=== PATIENT | female | born 1970 | race Caucasian/White ===

== ENCOUNTER 2022-11-30 02:11 | Emergency (ER) | payer BC, SELFPAY ==
[2022-11-30 02:13] VITALS: BP 129/66; PULSE 66; RESP 20; TEMP 36.8; O2SAT 97; BMI 34.1
[2022-11-30 02:20] VITALS: BP 129/66; PULSE 62; O2SAT 98
--- NOTE | 2022-11-30 02:24 | XR_ITS ---
PROCEDURE INFORMATION: Exam: XR Left Ankle Exam date and time: 11/30/2022 2:37 AM Age: 52 years old Clinical indication: Pain and injury or trauma; Other: Dropped large roll of paper on leg; Swelling (edema); Left; Ankle and lower leg; Bilateral; Additional info: Heavy object vs leg, pain/swelling TECHNIQUE: Imaging protocol: Radiologic exam of the left ankle. Views: 3 or more views. COMPARISON: CR XR TIBIA FIBULA LT 2V 11/30/2022 2:36 AM FINDINGS: Bones/joints: Normal. Soft tissues: Normal. IMPRESSION: No acute findings.
--- NOTE | 2022-11-30 02:24 | XR_ITS ---
PROCEDURE INFORMATION: Exam: XR Left Tibia and Fibula Exam date and time: 11/30/2022 2:36 AM Age: 52 years old Clinical indication: Injury or trauma; Other: Dropped a large roll of paper on leg; Swelling, leg or foot and other: Bruising to posterior leg; Additional info: Heavy object vs leg, pain/swelling TECHNIQUE: Imaging protocol: Radiologic exam of the left tibia and fibula. Views: 2 views. COMPARISON: No relevant prior studies available. FINDINGS: Bones/joints: Normal. Soft tissues: Normal. IMPRESSION: No acute findings.
--- NOTE | 2022-11-30 02:30 | [facility].EDGENADL ---
Discharge Plan Disposition Patient Disposition: Home, Self-Care Condition: Good Prescriptions Prescriptions: New gabapentin 300 mg capsule 300 mg PO Q12H PRN (Reason: pain) Qty: 12 0RF naproxen 500 mg tablet 500 mg PO Q8H PRN (Reason: pain) Qty: 20 0RF acetaminophen [Tylenol 8 Hour] 650 mg tablet extended release 650 mg PO Q8H PRN (Reason: fever or pain) Qty: 20 0RF No Action buspirone 5 mg tablet 5 mg PO DAILY Patient Comments: TAKE 1 TABLET BY MOUTH THREE TIMES A DAY metoprolol succinate 50 mg tablet extended release 24 hr 50 mg PO POSTTR Patient Comments: TAKE 1 TABLET BY MOUTH EVERY DAY omeprazole 20 mg capsule,delayed release(DR/EC) 20 mg PO DAILY Patient Comments: TAKE 1 CAPSULE (20 MG TOTAL) BY MOUTH DAILY zolpidem [Ambien] 5 mg Tablet 5 mg PO HS albuterol sulfate 90 mcg/actuation HFA aerosol inhaler 90 mcg INHALATION NEEDED PRN (Reason: Asthma) Patient Comments: INHALE 1 PUFF BY MOUTH EVERY 4 HOURS NEEDED olmesartan 5 mg Tablet 5 mg PO DAILY dextroamphetamine-amphetamine [Adderall XR] 5 mg Capsule,Extended Release 24hr 5 mg PO DAILY rosuvastatin 20 mg tablet 20 mg PO DAILY Patient Comments: TAKE 1 TABLET BY MOUTH EVERY DAY duloxetine [Cymbalta] 20 mg Capsule,Delayed Release(Dr/Ec) 20 mg PO POSTTR Referrals Follow up/Referrals: Chandni Preciado MD [Primary Care Provider] - See instructions Activity Restrictions/Add. Instructions Additional Instructions/Restrictions: You were evaluated in the emergency department today. 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 Ice and elevate your left lower leg. Follow-up with your primary care provider over the next 3 days for reassessment. Return to the emergency department for new or worsening symptoms. Clinical Impressions Clinical Impression: Sciatica, Hematoma of left lower leg, Left lumbar radiculopathy Stand Alone Forms Stand Alone Forms: Work/School Release Instructions Patient Instructions: DI for Sciatica, DI for Hematoma (Bruise), DI for Lumbar Radiculopathy Discharge ED Provider: Alisia Henson General Adult HPI General Chief complaint: Extremity Injury, Lower Stated complaint: AO 11/27/22 injury left left and foot Time Seen by Provider: 11/30/22 02:24 History of Present Illness HPI narrative: This patient is a 52-year-old female presenting to the emergency department for evaluation with concern for pain, numbness, and tingling to her left lower extremity. She reports that on Wednesday, she had a 100 pound paper roll come down and hit her in the posterior aspect of her left lower leg. She felt immediate pain without that she would be able to ignore it, however tonight she woke up with worsened pain in her left lower extremity. She states that she feels an immense pressure and feels like she needs to put a needle in it to decompress it. She also complains that she has paresthesias to her left foot. She notes that she has been having issues with sciatica over the last week as well, recently having an injection in her left posterior hip. She denies fevers, chills, or other concerns. She is still able to bear weight. Related Data Home Medications Medication Instructions Recorded Confirmed albuterol sulfate 90 mcg/actuation 90 mcg inhalation NEEDED PRN 11/30/22 11/30/22 aerosol inhaler Asthma buspirone 5 mg tablet 5 mg PO DAILY Anxiety 11/30/22 11/30/22 dextroamphetamine-amphetamine ER 5 5 mg PO DAILY Anxiety 11/30/22 11/30/22 mg 24hr capsule,extend release (Adderall XR) duloxetine 20 mg capsule,delayed 20 mg PO POSTTR anxiety/depression 11/30/22 11/30/22 release (Cymbalta) metoprolol succinate 50 mg 50 mg PO POSTTR htn 11/30/22 11/30/22 tablet,extended release 24 hr olmesartan 5 mg tablet 5 mg PO DAILY cad/htn 11/30/22 11/30/22 omeprazole 20 mg capsule,delayed 20 mg PO DA
[2022-11-30 02:42] VITALS: BP 135/89; PULSE 65; O2SAT 98
[2022-11-30 02:44] LABS: Basophils # 0.1 K/mm3 (0-0.2); Basophils % 0.5 % (0.1-2.0); Eosinophils # 0.2 K/mm3 (0.0-0.4); Eosinophils % 2.1 % (0.1-12.0); Hematocrit 41.9 % (37.0-47.0); Lymphocytes # 4.6 K/mm3 (0.7-4.5); Lymphocytes % 40.5 % (10-50); Mean Corpuscular HGB Conc 33.4 g/dL (31.8-35.4); Mean Corpuscular Hemoglobin 30.3 pg (27.0-31.2); Mean Corpuscular Volume 90.6 fl (81-99); Mean Platelet Volume 8.9 fl (7.4-10.4); Monocytes # 0.7 K/mm3 (0.1-1.0); Monocytes % 6.2 % (1.7-9.3); Neutrophils # 5.7 K/mm3 (1.8-7.8); Neutrophils % 50.7 % (37.0-80.0); Platelet Count 259 K/mm3 (142-424); Red Blood Count 4.63 M/mm3 (4.20-5.40); Red Cell Distribution Width 13.5 % (11.5-17.5); White Blood Count 11.3 K/mm3 (4.8-10.8)
[2022-11-30 02:50] LABS: Anion Gap 10.2 mEq/L (5-15); Blood Urea Nitrogen 15 mg/dl (7-17); Calcium 8.7 mg/dl (8.4-10.2); Carbon Dioxide 29 mmol/L (22.0-30.0); Chloride 102 mmol/L (98-107); Creatine Kinase 68 U/L (30-135); Creatinine Clearance Estimated 141 mL/min (50-200); Estimated Glomerular Filt Rate 89 ml/min (>60); GFR (African American) 107 ML/MIN (>60); Glucose 88 mg/dl (74-100); Potassium 4.2 mmoL/L (3.5-5.1); Sodium 137 mmol/L (136-145)
[2022-11-30 02:54] VITALS: BP 110/68; PULSE 62; O2SAT 98
[2022-11-30 03:00] VITALS: BP 104/57; PULSE 57; O2SAT 97
[2022-11-30 03:18] LABS: D-Dimer < 0.25 ug/mL (0.0-0.5)
[2022-11-30 04:27] VITALS: BP 111/67; PULSE 68; RESP 18; TEMP 36.8; O2SAT 98
== END 2022-11-30 04:20 | disposition home or self-care (01) ==
PROVIDERS: Emergency Provider Emergency Medicine; PCP Family Medicine Geriatric Medicine
DX: S80.12XA Contusion of left lower leg, initial encounter (principal); M54.16 Radiculopathy, lumbar region; M54.32 Sciatica, left side; W20.8XXA Other cause of strike by thrown, projected or falling object, initial encounter
CPT/HCPCS: 73590; 73610; 80048; 82550; 85025; 85378; 96374; 96375; 99284; J2405